=== PATIENT | male | born 1965 | race Caucasian/White ===

== ENCOUNTER 2016-08-16 11:13 | Outpatient (CLI) | payer OTHER | END 2016-08-16 20:50 | disposition home or self-care (01) | LOC: SMI 11:13 | DX: M51.37 Other intervertebral disc degeneration, lumbosacral region (principal); M54.40 Lumbago with sciatica, unspecified side; M47.817 Spondylosis without myelopathy or radiculopathy, lumbosacral region; M81.0 Age-related osteoporosis without current pathological fracture | CPT/HCPCS: 72148 ==

== ENCOUNTER 2018-07-19 10:43 | Outpatient (CLI) | payer OTHER | END 2018-07-19 20:17 | disposition home or self-care (01) | LOC: SMI 10:43 | DX: J34.2 Deviated nasal septum (principal); H02.849 Edema of unspecified eye, unspecified eyelid | CPT/HCPCS: 70551 ==

== ENCOUNTER 2018-09-26 10:52 | Outpatient (CLI) | payer OTHER ==
[2018-09-26 11:39] LABS: BASOPHILS % (AUTO) 0.8 % (0.0-2.0); EOSINOPHILS # (AUTO) 0.1 K/uL (0.0-0.4); EOSINOPHILS % (AUTO) 1.2 % (0.0-4.0); HEMATOCRIT 42.4 % (36-54); HEMOGLOBIN 14.2 g/dL (14.0-18.0); LYMPHOCYTES # (AUTO) 1.7 K/uL (1.0-5.5); LYMPHOCYTES % (AUTO) 39.7 % (20.5-51.5); MEAN CORPUSCULAR HEMOGLOBIN 30 pg (27-31); MEAN CORPUSCULAR HGB CONC 33 % (32-36); MEAN CORPUSCULAR VOLUME 89 fL (79.0-98.0); MONOCYTES # (AUTO) 0.3 K/uL (0.0-1.0); MONOCYTES % (AUTO) 7.5 % (1.7-9.3); NEUTROPHILS # (AUTO) 2.1 K/uL (1.8-7.7); NEUTROPHILS % (AUTO) 50.8 % (40.0-70.0); PLATELET COUNT (AUTO) 196 K/uL (130-430); RED BLOOD CELL COUNT(AUTO) 4.79 MIL/uL (4.2-6.2); RED CELL DISTRIBUTION WIDTH 14.6 % (9.0-15.0); WHITE BLOOD COUNT (AUTO) 4.2 K/uL (4.8-10.8)
[2018-09-26 11:53] LABS: ALBUMIN 3.9 g/dL (3.4-4.8); CALCIUM 9.2 mg/dL (8.4-11.0); CREATININE 0.84 mg/dL (0.55-1.30); TOTAL BILIRUBIN 0.7 mg/dL (0.0-1.0)
[2018-09-26 12:19] LABS: ERYTHROCYTE SEDIMENTATION RATE 6 MM/HR (0-15)
== END 2018-09-26 17:55 | disposition home or self-care (01) ==
LOC: SLB 10:52
PROVIDERS: ATTEND Psychiatry & Neurology Neurology
DX: G70.00 Myasthenia gravis without (acute) exacerbation (principal); R20.2 Paresthesia of skin
CPT/HCPCS: 36415; 80053; 80061; 85025; 85651-TC

== ENCOUNTER 2019-09-13 10:32 | Outpatient (CLI) | payer OTHER | END 2019-09-13 20:39 | disposition home or self-care (01) | LOC: SMI 10:32 | DX: M51.26 Other intervertebral disc displacement, lumbar region (principal); M99.53 Intervertebral disc stenosis of neural canal of lumbar region; M47.896 Other spondylosis, lumbar region | CPT/HCPCS: 72148 ==

== ENCOUNTER 2019-12-06 11:42 | Day surgery (SDC) | payer OTHER, SELFPAY ==
[2019-12-05 13:34] LABS: BASOPHILS % (AUTO) 0.7 % (0.0-2.0); EOSINOPHILS # (AUTO) 0.1 K/uL (0.0-0.4); HEMATOCRIT 39.5 % (36-54); HEMOGLOBIN 13.1 g/dL (14.0-18.0); LYMPHOCYTES # (AUTO) 1.3 K/uL (1.0-5.5); LYMPHOCYTES % (AUTO) 25.4 % (20.5-51.5); MEAN CORPUSCULAR HEMOGLOBIN 30 pg (27-31); MEAN CORPUSCULAR HGB CONC 33 % (32-36); MEAN CORPUSCULAR VOLUME 91 fL (79.0-98.0); MONOCYTES # (AUTO) 0.3 K/uL (0.0-1.0); MONOCYTES % (AUTO) 6.1 % (1.7-9.3); NEUTROPHILS # (AUTO) 3.5 K/uL (1.8-7.7); NEUTROPHILS % (AUTO) 66.8 % (40.0-70.0); PLATELET COUNT (AUTO) 197 K/uL (130-430); RED BLOOD CELL COUNT(AUTO) 4.36 MIL/uL (4.2-6.2); RED CELL DISTRIBUTION WIDTH 14.9 % (9.0-15.0); WHITE BLOOD COUNT (AUTO) 5.2 K/uL (4.8-10.8)
[2019-12-05 13:43] LABS: CALCIUM 8.5 mg/dL (8.4-11.0); CREATININE 0.8 mg/dL (0.55-1.30)
[2019-12-05 13:47] LABS: PROTHROMBIN TIME 10.4 SECS (9.5-12.5)
[2019-12-05 14:05] LABS: BILIRUBIN,URINE NEGATIVE (NEGATIVE); BLOOD, URINE NEGATIVE (NEGATIVE); CLARITY/URINE CLEAR (CLEAR); COLOR,URINE YELLOW (YELLOW); GLUCOSE,URINE NEGATIVE (NEGATIVE); KETONES,URINE NEGATIVE (NEGATIVE); LEUKOCYTE ESTERASE ,URINE NEGATIVE (NEGATIVE); NITRITE, URINE NEGATIVE (NEGATIVE); PROTEIN URINE NEGATIVE (NEGATIVE); UROBILINOGEN,URINE 0.2 (0.2-1.0)
[~2019-12-06] VITALS: Ht 177.8 cm; Wt 72.6 kg
[2019-12-06] MEDS ORDERED: CEFAZOLIN 2 GM IVPB PREMIX 50 ML IV ONE (12:52)
[2019-12-06] MEDS ORDERED: ROCURONIUM BROMIDE 10 MG/ML (ZEMURON) IV ONE (12:52)
[2019-12-06] MEDS ORDERED: SUCCINYLCHOLINE CHLORIDE 20 MG/ML(QUELICIN) IVP ONE (12:52)
[2019-12-06] MEDS ORDERED: fentaNYL CITRATE/PF 100 MCG/2 ML AMP IVP ONE (12:52)
[2019-12-06] MEDS ORDERED: DEXAMETHASONE SOD PHOSPHATE 4 MG/ML VIAL IVP ONE (12:52)
[2019-12-06] MEDS ORDERED: SUGAMMADEX SODIUM 200 MG/2 ML VIAL IV ONE (12:52)
[2019-12-06] MEDS ORDERED: SEVOFLURANE 15 MIN GAS INH ONE (12:52)
[2019-12-06] MEDS ORDERED: LR 1,000 ML IV.SOLN IV ONE (12:52)
[2019-12-06] MEDS ORDERED: ONDANSETRON HCL 4 MG/2 ML VIAL IVP ONE (12:52)
[2019-12-06] MEDS ORDERED: PROPOFOL 200MG/ 20ML VIAL (DIPRIVAN) IV ONE (12:52)
[2019-12-06] MEDS ORDERED: POLYMYXIN 500,000/BACIT.10,000 UNITS in NS IRR 1 L IR ONE (12:56)
[2019-12-06] MEDS ORDERED: LR 1,000 ML IV SCH (13:31)
[2019-12-06] MEDS ORDERED: ONDANSETRON HCL 4 MG/2 ML VIAL IVP PRN (13:45)
[2019-12-06] MEDS ORDERED: KETOROLAC TROMETHAMINE 30 MG VIAL IVP PRN (13:45)
[2019-12-06] MEDS ORDERED: MEPERIDINE HCL/PF 25 MG/ML DISP.SYRIN IVP PRN (13:45)
[2019-12-06] MEDS ORDERED: MORPHINE 4 MG/ML INJ. SYRINGE IVP PRN (13:45)
[2019-12-06] MEDS: HYDROmorphone 1 MG INJ. 1 MG/ML AMPUL IVP PRN ×2 (13:57→14:07)
[2019-12-06] MEDS ORDERED: HYDROmorphone 1 MG INJ. 1 MG/ML AMPUL ONE (14:12)
[2019-12-06 15:52] VITALS: BP_SYST 138
== END 2019-12-06 16:40 | disposition home or self-care (01) ==
LOC: SDS 11:42 → SMU 11:43 → SDS 16:40
PROVIDERS: ATTEND Orthopaedic Surgery
DX: S52.532A Colles' fracture of left radius, initial encounter for closed fracture (principal); E11.9 Type 2 diabetes mellitus without complications; W19.XXXA Unspecified fall, initial encounter; Y93.89 Activity, other specified; Y92.89 Other specified places as the place of occurrence of the external cause; Y99.8 Other external cause status
CPT/HCPCS: 25606; 36415; 71046; 76000; 80048; 81003; 85025; 85610; 85730; 87426; 93005; C1713; C9399; J0330; J0690; J1100; J1170; J2405; J2704; J3010; J7120

== ENCOUNTER → 2021-10-04 | Outpatient (CLI) | payer OTHER | END | disposition home or self-care (01) | LOC: SMI 09:13 | DX: M47.817 Spondylosis without myelopathy or radiculopathy, lumbosacral region (principal); M51.26 Other intervertebral disc displacement, lumbar region; M48.07 Spinal stenosis, lumbosacral region | CPT/HCPCS: 72148 ==